=== PATIENT | male | born 1985 ===

== ENCOUNTER 2017-02-17 15:46 | Emergency (ER) | payer BC ==
[2017-02-17 16:08] VITALS: BP 137/77; PULSE 69; RESP 18; TEMP 97.4; O2SAT 98
[2017-02-17] MEDS ORDERED: Sodium Chloride 0.9% 1,000 ML IV STA (17:03)
[2017-02-17 17:25] LABS: BASO # 0.1 K/uL (0.0-0.2); BASO % 0.7 % (0.0-2.0); EOS # 0.1 K/uL (0.0-0.7); EOS % 1.7 % (0.0-4.0); HEMATOCRIT 44.1 % (35.0-51.0); LYMPH # 2.3 K/uL (1.0-4.3); LYMPH % 29.6 % (20.0-40.0); MEAN CELL VOLUME 86.1 fl (80.0-94.0); MEAN CORPUSCULAR HEMOGLOBIN 29.4 pg (27.0-31.0); MEAN CORPUSCULAR HGB CONC 34.1 g/dL (33.0-37.0); MEAN PLATELET VOLUME 9.5 fl (7.2-11.7); MONO # 0.5 K/uL (0.0-0.8); MONO % 6.5 % (0.0-10.0); NEUT # 4.9 K/uL (1.8-7.0); NEUT % 61.5 % (50.0-75.0); NRBC % 0.2 % (0.0-0.0); RED CELL DISTRIBUTION WIDTH 14.1 % (11.5-14.5); WHITE BLOOD COUNT 7.9 K/uL (4.8-10.8)
[2017-02-17 17:34] LABS: ALKALINE PHOSPHATASE 81 U/L (38-126); ALT/SGPT 79 U/L (21-72); AST/SGOT 28 U/L (17-59); BILIRUBIN,TOTAL 0.7 mg/dl (0.2-1.3); BLOOD UREA NITROGEN 18 mg/dl (9-20); CALCIUM 9.8 mg/dL (8.4-10.2); CARBON DIOXIDE 26 mmol/L (22-30); CHLORIDE 107 mmol/L (98-107); GFR AFRICAN-AMERICAN > 60; GLUCOSE,RANDOM 103 mg/dL (75-110); POTASSIUM 4.3 MMOL/L (3.6-5.0); SODIUM 145 mmol/l (132-148); TOTAL PROTEIN 8.2 G/DL (6.3-8.2)
[2017-02-17 17:36] LABS: ALB/GLOB RATIO 1.6 (1.0-2.1)
[2017-02-17 17:55] LABS: RBC URINE 3972 /hpf (0-3); URINE BACTERIA RARE (<OCC); URINE BILIRUBIN NEGATIVE (NEGATIVE); URINE BLOOD LARGE (NEGATIVE); URINE COLOR YELLOW (YELLOW); URINE GLUCOSE (UA) NEG (Normal); URINE KETONE NEGATIVE (NEGATIVE); URINE LEUKOCYTE ESTERASE NEG Leu/uL (Negative); URINE PROTEIN 30 mg/dL (NEGATIVE); URINE UROBILINOGEN 0.2-1.0 mg/dL (0.2-1.0); WBC URINE 5 /hpf (0-5)
--- NOTE | 2017-02-17 18:36 | ED PDOC ---
HPI: Male Pain Time Seen by Provider: 02/17/17 16:55 Chief Complaint (Nursing): Male Genitourinary Chief Complaint (Provider): Male Genitourinary History Per: Patient History/Exam Limitations: no limitations Onset/Duration Of Symptoms: Days (x 5) Current Symptoms Are (Timing): Still Present Additional Complaint(s): Butch is a 31 year old male, with a past medical history of kidney stones and Urinary Tract Infections, who presents to the Emergency Department complaining of hematouria, urinary frequency and dysuria. Patient states during the weekend , patient developed right flank pain radiating to groin and abdomen. Denies fever, nausea, vomiting, and trauma PMD: [place] Past Medical History Reviewed: Historical Data, Nursing Documentation, Vital Signs Vital Signs: Last Vital Signs Temp 97.4 F L 02/17/17 16:05 Pulse 69 02/17/17 16:05 Resp 18 02/17/17 16:05 BP 137/77 02/17/17 16:05 Pulse Ox 98 02/17/17 16:05 - Medical History PMH: Back Problems (herniated disc, pinched nerves), Kidney Stones Other PMH: Urinary Tract Infection - Family History Family History: States: Unknown Family Hx - Immunization History Hx Tetanus Toxoid Vaccination: No Hx Influenza Vaccination: No Hx Pneumococcal Vaccination: No - Home Medications Home Medications: Ambulatory Orders Medication Instructions Recorded Famotidine [Pepcid] 20 mg PO BID #20 tab 10/04/15 Ciprofloxacin HCl [Cipro] 500 mg PO BID #14 tablet 02/17/17 Ibuprofen [Motrin Tab] 800 mg PO Q8 PRN #30 tab 02/17/17 Tamsulosin [Flomax] 0.4 mg PO DAILY #14 cap 02/17/17 - Allergies Allergies/Adverse Reactions: Allergies Allergy/AdvReac Type Severity Reaction Status Date / Time No Known Allergies Allergy Verified 07/13/13 18:46 Review of Systems ROS Statement: Except As Marked, All Systems Reviewed And Found Negative Gastrointestinal: Positive for: Other (Right flank pain radiating to groin and abdomen) Genitourinary Male: Positive for: Dysuria, Frequency, Hematuria Physical Exam - Reviewed Nursing Documentation Reviewed: Yes Vital Signs Reviewed: Yes - Physical Exam Appears: Positive for: Non-toxic Head Exam: Positive for: ATRAUMATIC, NORMAL INSPECTION, NORMOCEPHALIC Skin: Positive for: Normal Color Eye Exam: Positive for: Normal appearance, EOMI, PERRL ENT: Positive for: Normal ENT Inspection Neck: Positive for: Normal, Supple Cardiovascular/Chest: Positive for: Regular Rate, Rhythm Respiratory: Positive for: Normal Breath Sounds. Negative for: Respiratory Distress Gastrointestinal/Abdominal: Positive for: Normal Exam, Soft. Negative for: Tenderness Male Genital Exam: Positive for: other (Uncircumcised) Extremity: Positive for: Normal ROM Lymphatic: Positive for: Deferred Neurologic/Psych: Positive for: Alert, Oriented - Laboratory Results Result Diagrams: 02/17/17 17:21 02/17/17 17:21 - ECG O2 Sat by Pulse Oximetry: 98 (RA) Pulse Ox Interpretation: Normal Medical Decision Making Medical Decision Making: Time: 17:02 Plan: - CT Abdominal and Pelvis without PO or IV Contrast - CMP - CBC - Sodium Chloride 0.9% 1,000 ml IV 1,000 mls/hr - Toradol 30 mg IVP - Blood Culture - Urine Culrure Time: 17:33 - Urinalysis 1939 CT abd/pelvis w/o contrast: 1. 6.5 mm right UPJ calculus with minimal hydronephrosis. 2. Nonobstructing calculi in the right renal collecting system. On re-evaluation, pt. reports good pain relief. Informed of results. Instructed to f/u with urologist for further evaluation and to return to ED immediately if symptoms persist or worsen. Scribe Attestation: Documented by Darin Mckee, acting as a scribe for Louis Gonzales PA-C Provider Scribe Attestation: All medical record entries made by the Scribe were at my direction and personally dictated by me. I have reviewed the chart and agree that the record accurately reflects my personal performance of the history, physical exam, medical decision making, and the department course for this patient. I have also personally directed, reviewed, and agree with the discharge instructions and disposition. Disposition - Clinical Impression Clinical Impression: Nephrolithiasis - Patient ED Disposition Is Patient to be Admitted: No - Disposition Referrals: Lazaro Nice MD [Staff Provider] - Stanley Davison [Outside] Disposition: Routine/Home Disposition Time: 19:42 Condition: IMPROVED Additional Instructions: Follow up with Dr. Nice, urologist for further evaluation. Prescriptions: Ciprofloxacin HCl [Cipro] 500 mg PO BID #14 tablet Ibuprofen [Motrin Tab] 800 mg PO Q8 PRN #30 tab PRN Reason: pain Tamsulosin [Flomax] 0.4 mg PO DAILY #14 cap Instructions: How to Strain Your Urine (ED), Kidney Stones (ED) Forms: [employer] (E[place]ian), [facility] ED School/Work Excuse
--- NOTE | 2017-02-18 09:42 | CT ---
PROCEDURE: CT Abdomen and Pelvis without intravenous contrast HISTORY: R flank pain, hematuria, dysuria COMPARISON: None. TECHNIQUE: Helical CT of the abdomen and pelvis was performed without oral or intravenous contrast as per referring physician request.. Contrast Dose: None Radiation dose: Total exam DLP = 840.47 mGy-cm. This CT exam was performed using one or more of the following dose reduction techniques: Automated exposure control, adjustment of the mA and/or kV according to patient size, and/or use of iterative reconstruction technique. FINDINGS: LOWER THORAX: Unremarkable. LIVER: Fatty infiltration of liver appears to have diminished significantly. GALLBLADDER AND BILE DUCTS: The gallbladder is not contracted. No radiodense cholelithiasis is associated in the interval. PANCREAS: Unremarkable. No gross lesion or ductal dilatation. SPLEEN: Unremarkable. ADRENALS: Unremarkable. No mass. KIDNEYS AND URETERS: Multiple intrarenal calculi are again seen the right kidney with none radiodense at the left kidney. However, there is a 4.6 x 7.0 mm calculus identified at the right renal pelvis without definitive interval hydronephrosis appreciated at this time. There is no hydroureter bilaterally. No left hydronephrosis. No perinephric reaction bilaterally. Small lucency is stable at the lower pole right kidney. VASCULATURE: Unremarkable. No aortic aneurysm. BOWEL: Sigmoid diverticular changes remain quite mild with no associated reactive changes. No obstruction. No gross mural thickening. APPENDIX: Unremarkable. Normal appendix. PERITONEUM: Unremarkable. No free fluid. No free air. LYMPH NODES: Unremarkable. No enlarged lymph nodes. BLADDER: Unremarkable. REPRODUCTIVE: Unremarkable. BONES: No acute fracture. OTHER FINDINGS: None. IMPRESSION: 1. A 7 mm calculus identified within the right renal pelvis in the interval with additional intrarenal calculi scattered at the right kidney. No definitive obstructive uropathy is appreciable the right kidney which appears stable otherwise when compared to prior CT 10/04/2015. A potential fluctuant ball valve mechanism may be occurring at the right ureteropelvic junction however and further clinical correlation is advised. No radiodense urolithiasis is seen obstructs the right ureter at this time either. Urinary bladder is stable and unremarkable. Further characterization can provided by contrast CT if clinically warranted. Left kidney remains unremarkable. 2. Limited sigmoid diverticulosis without definite diverticulitis. Concordant preliminary report from [facility], 02/17/2017.
== END 2017-02-17 19:51 | disposition home or self-care (01) ==
LOC: H.ER 15:46
DX: N20.0 Calculus of kidney (principal); K57.30 Diverticulosis of large intestine without perforation or abscess without bleeding
CPT/HCPCS: 74176; 80053; 81003; 85025; 87040; 87086; 96361; 96374; 99282; J1885; J7040